=== PATIENT | male | born 1960 | race Caucasian/White ===

== ENCOUNTER 2017-02-22 20:55 | Emergency (ER) | payer MEDICARE, OTHER | END 2017-02-23 01:57 | disposition home or self-care (01) | LOC: ER 20:55 | DX: M17.11 Unilateral primary osteoarthritis, right knee (principal); M85.48 Solitary bone cyst, other site; E78.5 Hyperlipidemia, unspecified; I10 Essential (primary) hypertension; M54.9 Dorsalgia, unspecified; G89.29 Other chronic pain; F17.210 Nicotine dependence, cigarettes, uncomplicated; Z79.899 Other long term (current) drug therapy; Z79.02 Long term (current) use of antithrombotics/antiplatelets; Z79.82 Long term (current) use of aspirin | CPT/HCPCS: 73564; 96372; 99070; 99283-25 ==